=== PATIENT | female | born 1990 | race Two or more races ===

== ENCOUNTER 2018-07-03 20:03 | Emergency (ER) | payer OTHER ==
[~2018-07-03] VITALS: Ht 165.1 cm; Wt 140.2 kg
[2018-07-03 20:14] VITALS: BP 141/82
--- NOTE | 2018-07-03 20:32 | Emergency Room Report ---
History of Present Illness General Chief Complaint: General Complaint Source: Patient Present Illness HPI Patient is a 28-year-old female presented after increased blood pressure at a urgent care. Patient was known to be approximately 12 weeks . 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 Patient had previous imaging studies performed at [place]. Patient not been vomiting. She denies any headache. She denies any difficulty with urination.Patient denies any visual changes.Patient denies any vomiting or recent fever.Patient had reported previous ultrasound with intrauterine which showed anencephaly Allergies: Coded Allergies: No Known Allergies (Unverified , 07/03/18) Patient History Past Medical History: see triage record Last Menstrual Period: APR 06 Now: Yes - 12 weeks preg Reviewed Nursing Documentation: PMH: Agreed; PSxH: Agreed Nursing Documentation-PMH Past Medical History: No Stated History Review of Systems All Other Systems: negative except mentioned in HPI Physical Exam Vital Signs Date Time Temp Pulse Resp B/P (MAP) Pulse Ox O2 Delivery O2 Flow Rate FiO2 07/03/18 20:08 98.2 81 18 119/74 99 Room Air General Appearance: well appearing, no apparent distress, alert, GCS 15, obese Head: normocephalic, atraumatic ENT: hearing grossly normal, normal voice Neck: full range of motion, supple Respiratory: no respiratory distress, speaking full sentences Cardiovascular #1: normal inspection, regular rate, rhythm, no edema Gastrointestinal: normal inspection Musculoskeletal: no calf tenderness Neurologic: normal inspection, alert, oriented x3, responsive, seed corn manager production III-XII nml as tested, motor strength/tone normal, normal gait Psychiatric: mood/affect normal Skin: no rash Medical Decision Making Diagnostic Impression: Primary Impression: Anencephaly in ER Course Patient presented for hypertension. Differential diagnosis include was not limited to preeclampsia, anxiety, essential hypertension among others. Because of complexity of patient's case imaging studies were ordered.Patient was noted to have. Pelvic ultrasound showed anencephaly with no evident free fluid or other evident abnormalities consistent with ruptured ectopic. The patient was noted to have improvement in her blood pressure without treatment. The patient is advised to follow up with primary care doctor in 1-2 days. Patient is advised to return if any worsening condition or if any changes in status that are concerning. This report is dictated with [employer] tar pot worker software which may occasionally lead to discrepancies related to use of this software. Last Vital Signs Date Time Temp Pulse Resp B/P (MAP) Pulse Ox O2 Delivery O2 Flow Rate FiO2 07/03/18 20:08 98.2 81 18 119/74 99 Room Air Status: improved Disposition: HOME, SELF-CARE Condition: Stable Scripts No Active Prescriptions or Reported Meds George Webster MD Jul 03, 2018 20:32
[2018-07-03 21:55] VITALS: BP 139/74
--- NOTE | 2018-07-04 09:35 | Diagnostic Imaging Report ---
Indication: Pain during . Patient with reported history of anencephaly from prior ultrasound obtained at outside institution. Technique: Grayscale and duplex Doppler imaging of the pelvis performed utilizing a transabdominal scan and endovaginal scan. Comparison: None Findings: The uterus measures 15 x 9.6 x 10.1 cm. An intrauterine gestation is noted with a crown-rump length of approximately 5.9 cm. Abdominal circumference of approximately 5.8 cm. Femoral length of approximately 5.9 cm. Cardiac motion identified. heart beat of an inflammatory or beats per minute. There is abnormality of the cranial vault suggesting a neural tube defect, possibly on the spectrum of anencephaly, consistent with given history. The cervix is long and closed. Bilateral ovaries not visualized. No free pelvic fluid. IMPRESSION: Intrauterine gestation with approximate gestational age by ultrasound of 12 weeks based on crown-rump length. heart rate of 144 bpm. Abnormality of the cranial vault suggesting a neural tube defect, likely on the spectrum of anencephaly, consistent with given history. Correlate with maternal serum alpha-fetoprotein (MSAFP) levels. Comparison with prior exam would be helpful. Confirmatory imaging with MRI may be obtained as clinically indicated. Bilateral ovaries not visualized, precluding evaluation. No free pelvic fluid. Findings correspond with the preliminary report issued to the emergency department by the scanning ct scan special procedures technologist.
== END 2018-07-03 21:56 | disposition home or self-care (01) ==
LOC: EMR 20:40
DX: O35.0XX0 Maternal care for (suspected) central nervous system malformation in fetus, not applicable or unspecified (principal); O16.1 Unspecified maternal hypertension, first trimester
CPT/HCPCS: 76801; 76830; 99284